=== PATIENT | female | born 1990 | race African-American/Black ===

== ENCOUNTER 2017-06-03 10:27 | Emergency (ER) | payer MEDICAID ==
[~2017-06-03] VITALS: Ht 188 cm; Wt 102.1 kg
[2017-06-03 11:18] VITALS: BP 151/102
[2017-06-03] MEDS ORDERED: IBUPROFEN 800 MG TAB PO ONE ×2 (11:58→12:00)
[2017-06-03] MEDS ORDERED: ONDANSETRON ODT 4 MG TAB PO ONE (12:15)
== END 2017-06-03 12:11 | disposition home or self-care (01) ==
LOC: ER 10:27
DX: S86.911A Strain of unspecified muscle(s) and tendon(s) at lower leg level, right leg, initial encounter (principal); S50.811A Abrasion of right forearm, initial encounter; F17.210 Nicotine dependence, cigarettes, uncomplicated; W18.39XA Other fall on same level, initial encounter; Y93.89 Activity, other specified; Y92.89 Other specified places as the place of occurrence of the external cause; Y99.8 Other external cause status
CPT/HCPCS: 73590; 99284; Q0162

== ENCOUNTER 2019-01-09 16:33 | Emergency (ER) | payer MEDICAID ==
[~2019-01-09] VITALS: Ht 188 cm; Wt 99.8 kg
[2019-01-09 17:02] VITALS: BP 142/93
[2019-01-09] MEDS ORDERED: LIDOCAINE 2% (LOCAL ANESTH.) PF 5ml SDV ONE (17:27)
[2019-01-09] MEDS ORDERED: cefTRIAXone SOD 1,000 MG VL IM ONE (17:30)
[2019-01-09] MEDS ORDERED: KETOROLAC TROMETH 60MG/2ML VIAL IM ONE (17:30)
== END 2019-01-09 17:49 | disposition home or self-care (01) ==
LOC: ER 16:34
DX: K02.9 Dental caries, unspecified (principal); F17.210 Nicotine dependence, cigarettes, uncomplicated; F12.90 Cannabis use, unspecified, uncomplicated; Z87.442 Personal history of urinary calculi
CPT/HCPCS: 96372; 99283; J0696; J1885; J2001

== ENCOUNTER 2019-02-16 10:16 | Emergency (ER) | payer MEDICAID ==
[~2019-02-16] VITALS: Ht 188 cm; Wt 99.8 kg
[2019-02-16] MEDS ORDERED: ONDANSETRON HCL 4 MG/2 ML VIAL IV ONE (11:00)
[2019-02-16] MEDS ORDERED: FAMOTIDINE (10MG/ML) 2ML VL IV ONE (11:00)
[2019-02-16 11:20] LABS: Basophils # (auto) 0.1 uL; Basophils % (auto) 0.5 % (0.0-2.0); Eosinophils # (auto) 0 uL; Hematocrit 37.7 % (36.0-46.0); Hemoglobin 12.9 g/dL (12.2-16.2); Lymphocytes % (auto) 9.4 % (10.0-50.0); Mean Corpuscular Hgb Conc. 34.4 g/dL (32.0-36.0); Mean Corpuscular Volume 81.4 fL (80.0-100.0); Monocytes # (auto) 0.4 uL; Monocytes % (auto) 3.9 % (0.0-12.0); Neutrophils # (auto) 9.4 uL; Neutrophils % (auto) 86.2 % (37.0-80.0); Platelet Count (auto) 323 10^3/uL (140-450); Red Blood Cells 4.63 10^6/uL (4.0-5.20); Red Cell Distribution Width 14.7 % (11.8-14.3); White Blood Cell 10.9 10^3/uL (4.4-10.8)
[2019-02-16 11:25] LABS: Magnesium 2.1 mg/dL (1.6-2.6)
[2019-02-16 11:27] LABS: Albumin 4.2 g/dL (3.4-5.0); Calcium 9.5 mg/dL (8.5-10.1); Potassium 3.9 mmol/L (3.5-5.1)
[2019-02-16 11:29] LABS: BUN/Creatinine Ratio 13.8; Bilirubin, Total 0.6 mg/dL (0.2-1.0); Total Protein 8.8 g/dL (6.4-8.2)
[2019-02-16 14:51] VITALS: BP 130/76
== END 2019-02-16 15:14 | disposition home or self-care (01) ==
LOC: ER 10:16
DX: F12.288 Cannabis dependence with other cannabis-induced disorder (principal); R11.10 Vomiting, unspecified; Z87.442 Personal history of urinary calculi
CPT/HCPCS: 36415; 76705; 80053; 83690; 83735; 85025; 94761; 96374; 96375; 99284; J2405; J3490